=== PATIENT | male | born 1990 | race Caucasian/White ===

== ENCOUNTER 2021-09-18 12:54 | Outpatient (CLI) | payer BC ==
[2021-09-18] VITALS (7 sets, daily range): BP systolic 128–138; BP diastolic 67–89; PULSE 73–88; TEMP 98.8–98.9
[~2021-09-18] VITALS: Ht 185.4 cm; Wt 100.0 kg
[2021-09-18] MEDS ORDERED: NOVOLOG FLEX100 U/ML SQ (13:29)
[2021-09-18] MEDS ORDERED: ZESTRIL 20MG TA20 MG PO (13:31)
[2021-09-18] MEDS ORDERED: TRESIBA FL200 UNIT/1 SQ (13:40)
[2021-09-18] MEDS ORDERED: GLUCAGON EMERGEN1 M1 SQ (13:41)
--- NOTE | 2021-09-18 15:00 | NUR ---
Pt tolerated infusion and 1 hr obs period following infusion without issue. INT DC'd with catheter intact. He is escorted out to ED entrance with steady gait.
== END 2021-09-18 15:10 | disposition home or self-care (01) ==
LOC: EUO 12:54
DX: U07.1 COVID-19 (principal); E11.9 Type 2 diabetes mellitus without complications; I25.10 Atherosclerotic heart disease of native coronary artery without angina pectoris
CPT/HCPCS: M0245

== ENCOUNTER 2024-04-16 22:41 | Emergency (ER) | payer BC ==
[~2024-04-16] VITALS: Ht 185.4 cm; Wt 104.5 kg
[~2024-04-16 22:41] MED LIST: GLUCAGON EMERGEN1 M1 SQ; NOVOLOG FLEX100 U/ML SQ; TRESIBA FL200 UNIT/1 SQ; ZESTRIL 20MG TA20 MG PO
[2024-04-16 23:17] VITALS: TEMP 98.8
[2024-04-17 02:42] LABS: BASO # 0.1 K/mm3 (0.0-0.2); EOS # 0.1 K/mm3 (0.0-0.7); EOS % 1.5 % (0.0-4.0); GRAN # 2.5 K/mm3 (1.4-6.5); GRAN % 41.4 % (42.2-75.2); HEMOGLOBIN 14.5 g/dl (13.5-18.0); LYMPH # 2.2 K/mm3 (1.2-3.4); MEAN CELL VOLUME 84 fl (80.0-100.0); MEAN CORPUSCULAR HEMOGLOBIN 30 pg (27-31); MEAN CORPUSCULAR HGB CONC 36 g/dl (33.0-37.0); MEAN PLATELET VOLUME 9.8 fl (7.4-10.4); MONO # 1.1 K/mm3 (0.1-0.6); MONO % 18.8 % (1.7-9.3); PLATELET COUNT 195 K/mm3 (130-400); RED BLOOD COUNT 4.78 M/mm3 (4.20-5.60); REDCELL DISTRIBUTION WIDTH-CV 11.9 % (11.5-14.5)
[2024-04-17 02:52] LABS: ALBUMIN 3.8 g/dL (3.5-5.0); BILIRUBIN,TOTAL 0.5 mg/dL (0.2-1.2); CALCIUM 9.3 mg/dL (8.4-10.2); CREATININE, serum 0.98 mg/dL (0.72-1.25); POTASSIUM 3.5 mEq/L (3.5-4.5); TOTAL PROTEIN 7.2 g/dl (6.2-8.1)
[2024-04-17 03:29] LABS: MONOSCREEN NEGATIVE
[2024-04-17 04:05] LABS: URINE APPEARANCE CLEAR (CLEAR/HAZY); URINE BLOOD NEGATIVE (NEGATIVE); URINE COLOR YELLOW (YELLOW); URINE GLUCOSE 3+ (NEGATIVE); URINE KETONE 2+ (NEGATIVE); URINE NITRATE NEGATIVE (NEGATIVE); URINE PROTEIN(semi-quant) 1+ (NEGATIVE)
[2024-04-17 04:28] LABS: COLLECTION METHOD CLEAN CATCH
[2024-04-17 04:56] VITALS: BP 127/84; PULSE 73
== END 2024-04-17 05:01 | disposition home or self-care (01) ==
LOC: COL.ER 22:41
PROVIDERS: Nurse Practitioner Family
DX: R53.83 Other fatigue (principal); R53.81 Other malaise; E10.9 Type 1 diabetes mellitus without complications; I10 Essential (primary) hypertension; Z79.899 Other long term (current) drug therapy